=== PATIENT | female | born 1975 | race Caucasian/White ===

== ENCOUNTER 2017-06-12 11:12 | Inpatient (IN) | payer OTHER ==
[~2017-06-12] VITALS: Ht 167.6 cm; Wt 128.0 kg
--- NOTE | ~2017-06-12 | EKG ---
PATIENT: WHIT QUINTEROS UNIT #: [id number] Ventricular Rate: 97 BPM Atrial Rate: 97 BPM P-R Interval: 156 ms QRS Duration: 102 ms Q-T Interval: 348 ms QTC Calculation(Bezet): 441 ms P [place]: 55 degrees Calculated R [place]: 52 degrees Calculated T [place]: 51 degrees Diagnosis Line: Normal sinus rhythm Diagnosis Line: Possible Left atrial enlargement Diagnosis Line: Borderline ECG Diagnosis Line: No previous ECGs available Diagnosis Line: Confirmed by JEWEL GALEANO MD ([id number]) on 06/13/2017 Diagnosis Line: 8:36:06 AM INTERPRETING MD: WALESKA LAURA
--- NOTE | ~2017-06-12 | DS ---
Unit #: [id number] #: [id number] Patient: WHIT QUINTEROS [id number] [address] [place], [place] [address] [id number] MR#: [id number] NAME: WHIT QUINTEROS ROOM: [facility] Age: 41 Sex: F Admission Date: 06/12/2017 : 1975 Discharge Date: 06/13/2017 Attending Physician: Darrin Staley III, M.D. Primary Care Physician: Jodie Ng M.D. DISCHARGE SUMMARY PRIMARY REASON FOR ADMISSION Asiya gangrene. HISTORY OF PRESENT ILLNESS The patient is a 41-year-old woman who was seen in the office as a referral from her family physician. She had developed a large left thigh abscess about a week ago. She had been placed on oral antibiotics. She has never had a problem like this before. She had been having fevers and chills. She was seen in the office and subsequently admitted and taken to the operating room for a rather wide debridement of Asiya gangrene. She did have very poorly controlled diabetes. She was on an insulin drip postoperatively; however, she was fairly stable otherwise. She was noted to likely require additional debridement. My partner was concerned that she may have involvement of vital structures with a necrosis as well and she would be best served by being transferred to [facility] for further treatment and care. I discussed with (1) Service. They agreed to accept the patient in transfer. Dictated by... Daija Talley/sarah TD: 06/15/2017 09:52 JOB #: [id number] DISCHARGE SUMMARY Page 1 of 1 X Maksim Ford DISCHARGE SUMMARY
--- NOTE | ~2017-06-12 | BMI ---
[facility] Nutrition Therapy DATE: 06/13/17 Patient: WHIT QUINTEROS Physician: PORFIRIO Address: [address] Room/Bed: [address], Zip: [place] [address] Admit Date: 06/12/17 Date of : [birth year] Height: 5 6 Weight: 282 128 HIGH BMI NOTE: DX: 41 y/o female admitted with abscess on L thigh 1 pt malnutrition risk score for pressure ulcer not appropriate Patient is on 2L nasal cannula in ICU ANTHROPOMETRICS: Ht: 66", Wt: 128 kg, BMI: 44 (stage III obese) DIET: No diet ordered at this time INTERVENTION: Restricted diet, meds/fluids per MD RECOMMENDATIONS: Once medically feasible advance diet to consistent carb/healthy heart as tolerated due to PMH and to promote a gradual weight loss towards a healthy BMI range. If diet education is needed please consult RD. Respectfully, Lena Hernandez RD, LD Food and Nutritional Services [facility] cc: client file
--- NOTE | ~2017-06-12 | CO ---
Unit #: [id number] #: [id number] Patient: WHIT ENGLISH [id number] [address] [place], [place] [address] [id number] I MR#: [id number] NAME: WHIT ENGLISH ROOM: [facility] Age: 41 Sex: F Admission Date: 06/12/2017 : 1975 Attending Physician: Darrin Staley III, M.D. Primary Care Physician: Jodie Ng M.D. CONSULTATION REPORT Ms. English is a 41-year-old female, seen by Dr. Staley today in the office. She presented with an abscess in her left upper thigh. She said the lesion began about a week ago. She saw her family physician three days ago who started her on Keflex. They sent her to see Dr. Staley. She is diabetic and has a history of her sugars being high. She has had fever and chills. She has had a bit of a cold the last couple of weeks and also had some nausea and some vomiting. She as taken to the OR and had debridement of the left perineum and left groin for Asiya gangrene. We are asked to see postoperatively for ICU care. She is not on a ventilator. She is on a simple mask at 4 L with sats about 99%. No chest x-ray has been done. Her initial lab work at 11:40 today revealed a glucose of 563, creatinine of 1.1, sodium of 125, CO2 of 22, alkaline phos. of 177. Beta hCG was negative. Coags were normal. White count was 17,700, hematocrit 38.4, platelet count 169. Cultures have been done of the wound and are pending. PAST HISTORY Significant for: 1. Abscess left thigh. 2. History of maxillary sinusitis. 3. Some allergic rhinitis. 4. Depression. 5. Diabetes. 6. Dysmenorrhea. 7. Hypothyroidism, on replacement. 8. Hyperlipidemia. 9. Polycystic ovarian syndrome. ALLERGIES Demerol. CURRENT MEDICATIONS 1. Keflex. 2. Zyrtec. 3. Celexa. 4. Flonase. 5. Glucotrol. 6. Ibuprofen. 7. Levemir. 8. Unithroid. 9. Losartan. 10. NovoLog. 11. Zofran. 12. Simvastatin. Unit #: [id number] #: [id number] Patient: WHIT ENGLISH 13. Aldactone. SURGICAL HISTORY 1. . 2. Hip surgery. FAMILY HISTORY Depression, diabetes. SOCIAL HISTORY No alcohol, no illicit drugs. Never smoker. REVIEW OF SYSTEMS CONSTITUTIONAL: Has had fevers, chills. HEENT: Some rhinorrhea, nasal congestion, sinus problems. PULMONARY: Generally, no short of breath, no cough, no purulent sputum. Did have a bit of a cold in the last couple of weeks. CARDIAC: No chest pain. GI: Has had some nausea and vomiting. : No dysuria. MUSCULOSKELETAL: Negative. NEURO: No unilateral weakness or numbness. SKIN: No rash. Has had a boil on her left thigh. Some history of depression. PHYSICAL EXAMINATION GENERAL: White female, laying in bed, obese, in no distress. VITAL SIGNS: Blood pressure 140/70, pulse 90, respiratory rate 18, afebrile. O2 sat on 4 L simple mask 97% to 99%. HEENT: Normocephalic, atraumatic. Pupils equal, round and reactive. Sclerae not icteric. Nasal passages patent. Posterior pharynx crowded. Mucous membranes dry. NECK: Supple, hick. Trachea midline. cervical or supraclavicular lymphadenopathy. LUNGS: Reveal fairly clear lung marinelli bilaterally. CARDIAC: Heart sounds distant. Regular rate and rhythm. ABDOMEN: Nontender. Bowel sounds present. No hepatosplenomegaly. EXTREMITIES: Left thigh and groin bandaged. No edema. NEURO: Awake, oriented x3. Moves extremities symmetrically. Affect calm, awake. DIAGNOSTIC STUDIES LABORATORY: Laboratory studies reviewed. IMPRESSION 1. Postop debridement left peritoneum and groin for Asiya gangrene. 2. Diabetes. 3. Hypertension. 4. Hyponatremia secondary to hyperglycemia. PLAN O2 to keep sats greater than or equal to 90%. Dr. Crews to see for diabetes. Will check chest x-ray. Antibiotics per ID. Would recommend SCD hose. Further recommendations pending this. Unit #: [id number] #: [id number] Patient: WHIT ENGLISH Dictated by... Driss Bustamante M.D. SAUNDRA/luiz TD: 06/14/2017 15:14 JOB #: [id number] CONSULTATION REPORT Page 1 of 1 X Driss Bustamante MD CONSULTATION REPORT
--- NOTE | ~2017-06-12 | CO ---
Unit #: [id number] #: [id number] Patient: WHIT QUINTEROS [id number] [address] [place], [place] [address] [id number] MR#: [id number] NAME: WHIT QUINTEROS ROOM: Age: 41 Sex: F Admission Date: 06/12/2017 : 1975 Attending Physician: Darrin Staley III, M.D. Primary Care Physician: Jodie Ng M.D. Consultation Date: 06/12/2017 CONSULTATION REPORT REASON FOR CONSULTATION Diabetes management. HISTORY OF PRESENT ILLNESS The patient is a 41-year-old female with past medical history of diabetes, hypertension and hyperlipidemia, who was admitted by Dr. Staley for debridement of Asiya gangrene involving the perineum and left thigh. The patient states that she noticed a boil in the perineal area about a week ago. It has increased in size and become quite red and swollen. She saw her primary care physician earlier this week and was placed on an unknown antibiotic. She apparently saw Dr. Staley today in the office. She states that it had started to drain. She has never had a similar skin infection. She states that her blood sugars have been in the 300s. She has had fever and chills as well as nausea and vomiting. She reports two bouts of nonbloody emesis within the past 24 hours. She denies any diarrhea. She underwent massive excisional debridement of the left perineum and left groin. Laboratory notable for glucose of 563, CO2 is 22, anion gap is 13. Again [facility] was consulted for diabetes. The patient states that she takes glipizide 10 mg daily at home as well as Levemir 50 units twice daily and NovoLog 10 units t.i.d. with meals. She states that she has been taking her medications as prescribed. PAST MEDICAL HISTORY 1. Diabetes. 2. Hypertension. 3. Hyperlipidemia. 4. Hypothyroidism. PAST SURGICAL HISTORY 1. Left hip surgery. 2. . SOCIAL HISTORY The patient lives with her . There is no tobacco, alcohol or illicit drug use. She is unemployed. FAMILY HISTORY Family history is notable for her dad having diabetes. Her mother of traumatic injuries. Unit #: [id number] #: [id number] Patient: WHIT QUINTEROS ALLERGIES Meperidine. HOME MEDICATIONS Keflex, Zyrtec, Celexa, Flonase, Glucotrol, ibuprofen, Levemir, levothyroxine, losartan, NovoLog, ondansetron, simvastatin, Aldactone. DIAGNOSTIC STUDIES LABORATORY: Comprehensive metabolic panel notable for a sodium of 125 that corrects to 132 when glucose of 563 is accounted for, CO2 is 22, anion gap is 13, alkaline phosphatase 177, albumin is 2. Beta hCG is negative. INR is 1.1. Complete blood count notable for white blood cell count of 17.7. PHYSICAL EXAMINATION VITAL SIGNS: Temperature is 98. Blood pressure 102/58. BMI is 43. GENERAL: The patient is a female who is sleeping but wakes to voice. HEENT: The head is atraumatic. Mucous membranes are moist. NECK: Neck is supple. Trachea is midline. CARDIOVASCULAR: Regular rate and rhythm. LUNGS: Lungs are clear to auscultation bilaterally with no increased work of breathing. ABDOMEN: Abdomen is obese, soft, nontender, with bowel sounds present in all four quadrants. GENITOURINARY: The patient has a bandage in the perineal area extending to the left thigh, that is clean, dry and intact. There is no pedal edema. NEUROLOGIC: The patient is oriented x3. She follows commands. PSYCHIATRIC: Mood and affect are normal. The patient is cooperative. SKIN: Demonstrates the previously described abnormalities. ASSESSMENT The patient is a 41-year-old female with: 1. Status post debridement of Asiya gangrene involving the perineum and left thigh. Looks like the patient received Zosyn. 2. Uncontrolled diabetes with a glucose of 563. The patient does not appear to be in DKA. 3. Hyponatremia, sodium corrects to 132 when glucose is accounted for. 4. Leukocytosis. 5. Hypertension. 6. Hyperlipidemia. 7. Morbid obesity with a BMI of 43. 8. Increased risk of obstructive sleep apnea. 9. Hypothyroidism. PLAN 1. Regarding uncontrolled diabetes, I have ordered insulin drip per non DKA protocol to start now as well as hemoglobin A1C and will repeat BMP later this evening. 2. Regarding Asiya gangrene, the patient is status post debridement. Dr. Hampton has been consulted. I have ordered blood cultures, if not already done, as well as vancomycin, meropenem, clindamycin pending Dr. Hampton's recommendations 3. Regarding increased risk of obstructive sleep apnea I have ordered the protocol. 4. Regarding hypothyroidism I have ordered TSH. Unit #: [id number] #: [id number] Patient: WHIT QUINTEROS Thank you very much for the consultation. We will follow the patient along with you. Dictated by... Tiffany Zhu M.D. ARYA/dangelo TD: 06/12/2017 16:38 JOB #: [id number] CONSULTATION REPORT Page 1 of 1 X Tiffany Zhu MD X CONSULTATION REPORT
--- NOTE | ~2017-06-12 | CR72 ---
[facility] A Service of [facility] & [facility] RADIOLOGY TEXT RESULTS PATIENT: WHIT QUINTEROS LOCATION: [address] : [birth year] UNIT #: [id number] AGE: [address]: Darrin Staley III, MD SEX: F ORDER DR: [id number] [address] [place], [place] [address] [id number] I MR#: [id number] Acc #: [id number] NAME: WHIT QUINTEROS : 1975 SEX: F STUDY DATE/TIME: 06/12/2017 16:38 UNIT: [facility] ROOM: [facility] STUDY DESCRIPTION: CR Chest Single View Portable Attending Physician: Darrin Staley III, M.D. Ordering Physician: Darrin Staley III, M.D. Primary Care Physician: Jodie Ng M.D. MEDICAL IMAGING REPORT This report is preliminary unless electronic signature is present EXAM Portable chest INDICATIONS Shortness of breath today. No comparisons. FINDINGS There is a band of linear scarring or atelectasis in the right mid zone. Low-volume inspiration. Heart size normal. IMPRESSION Linear scarring or atelectasis in the right mid zone. Dictated by... Alen Baltazar M.D. THIS IS AN ELECTRONICALLY VERIFIED REPORT Alen Baltazar M.D. at 06/15/2017 12:15 PM ARS/alexander TD: 06/12/2017 22:49 JOB #: [id number] MEDICAL IMAGING REPORT Page 1 of 1 COPY
--- NOTE | ~2017-06-12 | CR71 ---
[facility] A Service of [facility] & [facility] RADIOLOGY TEXT RESULTS PATIENT: WHIT QUINTEROS LOCATION: [place] [id number] : [birth year] UNIT #: [id number] AGE: [address]: Darrin Staley III, MD SEX: F ORDER DR: [id number] [facility] [address] [facility]. [place], [place] [address] [id number] I MR#: [id number] Acc #: [id number] NAME: WHIT QUINTEROS : 1975 SEX: F STUDY DATE/TIME: 06/13/2017 4:24 UNIT: [facility] ROOM: [facility] STUDY DESCRIPTION: CR Chest Single View Attending Physician: Darrin Staley III, M.D. Ordering Physician: Tiffany Zhu M.D. Primary Care Physician: Jodie Ng M.D. MEDICAL IMAGING REPORT This report is preliminary unless electronic signature is present EXAM Chest x-ray 06/13/2017 HISTORY 41-year-old female postop drainage of left thigh abscess. Shortness of air. TECHNIQUE AP portable chest x-ray. FINDINGS Interstitial markings are diffusely prominent and mildly indistinct suggesting potential new onset mild vascular congestion since yesterday. The lungs are otherwise clear with no airspace consolidation, pneumothorax or pleural effusion. Heart size normal. Low lung volumes. IMPRESSION Potential mild vascular congestion, new since yesterday. Dictated by... Vladimir Ashford M.D. THIS IS AN ELECTRONICALLY VERIFIED REPORT Vladimir Ashford M.D. at 06/13/2017 9:59 PM GEORGINA/elmer TD: 06/13/2017 07:41 JOB #: [id number] MEDICAL IMAGING REPORT Page 1 of 1 COPY
--- NOTE | ~2017-06-12 | OR ---
Unit #: [id number] #: [id number] Patient: WHIT QUINTEROS [id number] [address] [place], [place] [address] [id number] Zuleima MR#: [id number] NAME: WHIT QUINTEROS ROOM: [facility] Date of Procedure: 06/12/2017 Admission Date: 06/12/2017 Surgeon: Darrin Staley III, M.D. : 1975 Attending Physician: Darrin Staley III, M.D. Primary Care Physician: Jodie Ng M.D. OPERATIVE REPORT PREOPERATIVE DIAGNOSIS Asiya gangrene, left groin and left perineum. POSTOPERATIVE DIAGNOSIS Asiya gangrene, left groin and left perineum. PROCEDURE PERFORMED Massive sharp excisional debridement of skin and subcutaneous tissue down to fascia involving the entire left groin and left perineal area including the medial inner thigh. ANESTHESIA General. SPECIMEN Cultures and tissue sent to microbiology and pathology respectively. COMPLICATIONS None apparent. ESTIMATED BLOOD LOSS 100 mL. INDICATIONS FOR PROCEDURE This is a 41-year-old morbidly obese lady, who has diabetes and presented to my partner's office with Asiya gangrene involving the left groin and perineal area. She was brought over for surgery. Her preop blood sugars were over 500 and she had a leukocytosis. She is here today for debridement. DESCRIPTION OF PROCEDURE After consent was obtained, the patient was brought to the operating room and placed in the supine position. She was intubated and then placed in dorsal lithotomy position. She had multiple bullae and blisters of the left groin area with a very foul smell. This area extended from the anterior thigh medially all the way down to the perineum and then inner medial thigh. I began by trying to make separate incisions. There were four prominent bullae and blisters and I tried to limit the extent of the scar; however, there was completely tissue and purulent material and gas underneath the wound. I ended up connecting all these wounds together and she had one giant wound. It was impossible for me to remove all nonviable tissue at this juncture and I was just trying to get control of Unit #: [id number] #: [id number] Patient: WHIT QUINTEROS the majority of it. I achieved good hemostasis and the wound was packed with three separate Kerlix gauzes that were all soaked in Betadine. She was brought to the intensive care unit in stable condition. She is ultimately going to need to be transferred down to [facility]. In the meantime, I will get her stabilized and have Endocrine see her for her sugars, infectious Disease for antibiotic selection, and the carroter. She is going to need multiple washouts and debridements. Dictated by... Darrin Staley III, M.D. VCL/ami TD: 06/12/2017 16:55 JOB #: [id number] OPERATIVE REPORT Page 1 of 1 X Darrin Staley III, MD X PROCEDURE OPERATIVE NOTE
[2017-06-12] MEDS ORDERED: KEFLEX500 M1 PO (11:48)
[2017-06-12] MEDS ORDERED: CELEXA20 MG PO (11:49)
[2017-06-12] MEDS ORDERED: FLONASE ALLERG9.9 ML INH (11:49)
[2017-06-12] MEDS ORDERED: ZYRTEC10 M1 PO (11:49)
[2017-06-12] MEDS ORDERED: IBUPROFEN800 MG PO (11:50)
[2017-06-12] MEDS ORDERED: GLUCOTROL10 MG PO (11:50)
[2017-06-12] MEDS ORDERED: LOSARTAN POTASS50 MG PO (11:51)
[2017-06-12] MEDS ORDERED: LEVEMIR100 UNITS/ SUBQ (11:51)
[2017-06-12] MEDS ORDERED: UNITHROID200 MCG PO (11:51)
[2017-06-12] MEDS ORDERED: NOVOLOG100 UNIT/1 SUBQ (11:52)
[2017-06-12] MEDS ORDERED: ALDACTONE PO (11:54)
[2017-06-12] MEDS ORDERED: ONDANSETRON ODT8 MG PO (11:54)
[2017-06-12] MEDS ORDERED: SIMVASTATIN40 MG PO (11:54)
[2017-06-12 11:55] LABS: HEMATOCRIT 38.4 % (35.0-45.0); HEMOGLOBIN 12.6 gm/dL (12.0-16.0); MEAN CELL VOLUME 88.1 FL (83-96); MEAN CORPUSCULAR HGB CONC 32.9 g/dL (30-36); MEAN PLATELET VOLUME 10.9 FL (6.5-11.5); RED BLOOD COUNT 4.36 X10e (3.90-5.30); RED CELL DISTRIBUTION WIDTH 15.4 % (11.0-15.5); WHITE BLOOD COUNT 17.7 X10e3 (4.0-10.5)
[2017-06-12 12:07] LABS: INR 1.1; PARTIAL THROMBOPLASTIN TIME 25.4 SECONDS (23.5-31.3); PROTHROMBIN TIME (PATIENT) 11.4 SECONDS (10.0-11.7)
[2017-06-12 12:43] LABS: BILIRUBIN,TOTAL 1.1 mg/dL (0.2-2.0); BUN/CREATININE RATIO 29.09; CALCIUM SERUM 9.5 mg/dL (8.4-10.2); CREATININE SERUM 1.1 mg/dL (0.6-1.4); GLOM FILT RATE Estimated 61.5 mL/min (>60); POTASSIUM 3.6 mmol/L (3.5-5.1); PROTEIN TOTAL SERUM 6.4 g/dL (6.0-8.3)
[2017-06-12 16:38] LABS: BASOPHIL% 0.1 % (0-2.5); EOSINOPHIL% 0.2 % (0.0-7.0); HEMATOCRIT 35.5 % (35.0-45.0); HEMOGLOBIN 11.5 gm/dL (12.0-16.0); LYMPHOCYTE# 0.5 X10e3 (1.0-3.5); LYMPHOCYTE% 3.9 % (17.0-45.0); MEAN CELL VOLUME 88.5 FL (83-96); MEAN CORPUSCULAR HEMOGLOBIN 28.7 PG (28-34); MEAN CORPUSCULAR HGB CONC 32.4 g/dL (30-36); MEAN PLATELET VOLUME 10.7 FL (6.5-11.5); MONOCYTE# 0.5 X10e3 (0-1.0); NEUTROPHIL# 11.8 X10e3 (1.5-7.1); NEUTROPHIL% 91.8 % (40-75); PLATELET COUNT 149 X10e3 (140-420); RED BLOOD COUNT 4.01 X10e (3.90-5.30); RED CELL DISTRIBUTION WIDTH 15.3 % (11.0-15.5); WHITE BLOOD COUNT 12.9 X10e3 (4.0-10.5)
[2017-06-12 16:39] LABS: DIFF IND YES
[2017-06-12 16:52] LABS: PLATELET ESTIMATE NORMAL (NORMAL)
[2017-06-12 16:53] LABS: HYPOCHROMIA SL
[2017-06-12 16:59] LABS: MAGNESIUM 1.9 mg/dL (1.6-3.0); PHOSPHOROUS 2.3 mg/dL (2.5-4.6)
[2017-06-12 17:02] LABS: BUN/CREATININE RATIO 27.5; CALCIUM SERUM 8.4 mg/dL (8.4-10.2); CREATININE SERUM 1.2 mg/dL (0.6-1.4); GLOM FILT RATE Estimated 55.3 mL/min (>60); POTASSIUM 3.4 mmol/L (3.5-5.1)
[2017-06-13 05:49] LABS: BASOPHIL% 0.1 % (0-2.5); EOSINOPHIL% 0.3 % (0.0-7.0); HEMATOCRIT 33.6 % (35.0-45.0); LYMPHOCYTE# 0.8 X10e3 (1.0-3.5); LYMPHOCYTE% 5.2 % (17.0-45.0); MEAN CORPUSCULAR HEMOGLOBIN 28.7 PG (28-34); MEAN CORPUSCULAR HGB CONC 32.6 g/dL (30-36); MEAN PLATELET VOLUME 10.6 FL (6.5-11.5); MONOCYTE# 0.9 X10e3 (0-1.0); MONOCYTE% 5.8 % (3.0-12.0); NEUTROPHIL% 88.6 % (40-75); PLATELET COUNT 153 X10e3 (140-420); RED BLOOD COUNT 3.82 X10e (3.90-5.30); WHITE BLOOD COUNT 15.8 X10e3 (4.0-10.5)
[2017-06-13 06:02] LABS: DIFF IND NO
[2017-06-13 06:20] LABS: ALBUMIN SERUM 1.6 g/dL (3.5-5.0); BILIRUBIN,TOTAL 0.7 mg/dL (0.2-2.0); BUN/CREATININE RATIO 36.66; CALCIUM SERUM 8.2 mg/dL (8.4-10.2); CREATININE SERUM 0.9 mg/dL (0.6-1.4); GLOM FILT RATE Estimated 78.4 mL/min (>60); MAGNESIUM 2.2 mg/dL (1.6-3.0); PHOSPHOROUS 1.5 mg/dL (2.5-4.6); POTASSIUM 3.5 mmol/L (3.5-5.1); PROTEIN TOTAL SERUM 5.5 g/dL (6.0-8.3)
== END 2017-06-13 11:30 | disposition hospice, home (50) | DRG 749 ==
LOC: CSUR 11:12 → CICCU2 12:40 → CSUR 13:00 → CICCU2 14:20 → CSUR 14:20 → CICCU2 06-13 11:30
PROVIDERS: Family Medicine; Surgery
PROC: 0JBM0ZZ Excision of Left Upper Leg Subcutaneous Tissue and Fascia, Open Approach (ICD-10-PCS; 2017-06-12)
PROC: 0JBB0ZZ Excision of Perineum Subcutaneous Tissue and Fascia, Open Approach (ICD-10-PCS; principal; 2017-06-12 13:00)
DX: N76.89 Other specified inflammation of vagina and vulva (principal); L02.416 Cutaneous abscess of left lower limb; E11.65 Type 2 diabetes mellitus with hyperglycemia; E87.1 Hypo-osmolality and hyponatremia; Z68.41 Body mass index [BMI] 40.0-44.9, adult; I10 Essential (primary) hypertension; Z81.8 Family history of other mental and behavioral disorders; Z83.3 Family history of diabetes mellitus; E11.9 Type 2 diabetes mellitus without complications; E78.5 Hyperlipidemia, unspecified; E03.9 Hypothyroidism, unspecified; Z79.4 Long term (current) use of insulin; D72.829 Elevated white blood cell count, unspecified; E66.01 Morbid (severe) obesity due to excess calories; G47.33 Obstructive sleep apnea (adult) (pediatric); E28.2 Polycystic ovarian syndrome; J30.9 Allergic rhinitis, unspecified
CPT/HCPCS: 71010; 80048; 80053; 82947; 83036; 83735; 84100; 84443; 84703; 85025; 85027; 85610; 85730; 87040; 87070; 87075; 87077; 87205; 88304; 93005; J0131; J1815; J2185; J2250; J2270; J2405; J2543; J2550; J2765; J3370; J3475